=== PATIENT | female | born 1975 | race Caucasian/White ===

== ENCOUNTER 2017-06-19 07:58 | Emergency (ER) | payer BC ==
--- NOTE | ~2017-06-19 | CR93 ---
[facility]. [facility] A Service of [facility] & [facility] / [facility] RADIOLOGY TEXT RESULTS PATIENT: SARMAD TRACY LOCATION: SED : 77 UNIT #: [id number] AGE: [address]: Freddy Lovell MD SEX: F ORDER DR: [id number] [id number] E MR#: [id number] Acc #: [id number] NAME: SARMAD TRACY. : 1975 SEX: F STUDY DATE/TIME: 06/19/2017 9:06 UNIT: SED ROOM: STUDY DESCRIPTION: CR Elbow Min 3 Views Lt Attending Physician: Freddy Lovell M.D. Ordering Physician: Freddy Lovell M.D. Primary Care Physician: Maegan Nelson A.P.R.N. MEDICAL IMAGING REPORT This report is preliminary unless electronic signature is present. EXAM Left elbow, 3 views INDICATIONS Left elbow pain and laceration this morning. No comparisons. FINDINGS Normal alignment. No fracture. No joint effusion. No radiopaque foreign body. IMPRESSION Negative. Dictated by... Heriberto Sage M.D. THIS IS AN ELECTRONICALLY VERIFIED REPORT Heriberto Sage M.D. at 06/20/2017 9:30 AM ALIS/sergei TD: 06/19/2017 10:39 JOB #: [id number] MEDICAL IMAGING REPORT Page 1 of 1
[~2017-06-19 07:58] MED LIST: ACYCLOVIR15 G1 TP; ACYCLOVIR400 MG PO; AMITIZA24 MCG; CATAFLAM50 MG PO; CIPRO PO; FLEXERIL10 MG PO; HCTZ PO; IBUPROFEN800 MG PO; LORTAB 5/500 TA1 TA1 PO; PHENERGAN25 M1 PO; SINGULAIR PO; TRIAMTERENE-HC1 EAC1 PO; VERAPAMIL HCL80 MG PO; VOLTAREN50 MG PO; ZYRTEC10 M2 PO
[2017-06-19] MEDS ORDERED: LEVOTHYROXINE25 MC1 PO (08:07)
[2017-06-19] MEDS ORDERED: SINGULAIR PO (08:07)
== END 2017-06-19 10:30 | disposition home or self-care (01) ==
LOC: SED 07:58
DX: S51.012A Laceration without foreign body of left elbow, initial encounter (principal); W01.198A Fall on same level from slipping, tripping and stumbling with subsequent striking against other object, initial encounter; Y92.009 Unspecified place in unspecified non-institutional (private) residence as the place of occurrence of the external cause; Z91.040 Latex allergy status; Z88.8 Allergy status to other drugs, medicaments and biological substances
CPT/HCPCS: 12001; 73080; 99283